=== PATIENT | female | born 1970 | race Caucasian/White ===

== ENCOUNTER 2018-07-25 05:25 | Day surgery (SDC) | payer OTHER ==
[2018-07-24 13:34] LABS: EOSINOPHILS 1.5 % (0-7); HEMATOCRIT 27.8 % (36.0-48.0); HEMOGLOBIN 7.9 g/dL (12-16); IMMATURE GRANULOCYTES 0.2 % (0-5); LYMPHOCYTES 22.9 % (15-50); MCH 20.5 pg (26.0-34.0); MCHC 28.4 g/dL (31.0-37.0); MCV 72.2 fL (80.0-100.0); MEAN PLATELET VOLUME 9.3 fL (7.4-10.4); MONOCYTES 6.9 % (2-11); NEUTROPHILS 67.5 % (40-80); PLATELET COUNT 479 10x3/uL (130-400); RBC 3.85 10x6/uL (4.00-5.40); WBC 8.1 10x3/uL (4.8-10.8)
[2018-07-24 13:38] LABS: CALC OSMOLALITY 284 mosm/kg (275-300); CALCIUM 8.3 mg/dL (8.5-10.1); CARBON DIOXIDE 27.1 mmol/L (21.0-32.0); CHLORIDE - SERUM 108 mmol/L (98-107); CREATININE - SERUM 0.8 mg/dL (0.6-1.3); GLUCOSE 102 mg/dL (74-106); POTASSIUM - SERUM 3.8 mmol/L (3.5-5.1); SODIUM 142 mmol/L (136-145); UREA NITROGEN 18 mg/dL (7-18); eGFR NON AFRICAN AMERICAN 82 mL/min (90-120)
[2018-07-25] VITALS (9 sets, daily range): BP systolic 100–133; BP diastolic 52–67; BMI 34.6
[~2018-07-25 05:25] MED LIST: FERRALET 90 TA1 EACH PO; THEREMS-M1 TAB PO
[2018-07-25 06:02] LABS: HCG URINE NEGATIVE (NEGATIVE)
--- NOTE | 2018-07-25 11:40 | NUR ---
RECEIVED PT FROM VIA STRETCHER TO ROOM 1257. PT TRANSFERS ONTO BED PER SELF AND 2 ASSISTS. PT DROUSY, BUT AWAKE. AAO X 3. VSS. HRRR WITHOUT AUDIBLE MURMUR. BBS CLEAR. BS HYPOACTIVE. 3 LAP INCISION NOTED WITHOUT REDNESS, SWELLING OR DRAINAGE NOTED. NO VAGINAL DISCHARGE NOTED ON PERIPAD. NEG HOMANS' SIGN. PPP. PIV SITE CLEAR TO LEFT HAND-20 GAUGE CATHELON NOTED. LR INFUSING AT 125 ML/HR. CRAIG TO GRAVITY DRAINING CLEAR, YELLOW URINE. PT ORIENTED TO ROOM, BED, AND CALL LIGHT. SR UP X2. CALL LIGHT IN REACH.
--- NOTE | 2018-07-25 12:37 | NUR ---
PT LYING SUPINE IN BED. WAKES UPON ENTERING ROOM. STATES PAIN OF "3" ON 0-10 PAIN SCALE. TORADOL 15 MG GIVEN SIVP OVER 2 MINUTES. PT INSTRUCTED ON MED. VERBALIZES UNDERSTANDING.
--- NOTE | 2018-07-25 13:00 | NUR ---
PT LYING SUPINE IN BED. WAKES UPON ENTERING ROOM. STATES PAIN NOW "1-2" ON 0-10 PAIN SCALE. STATES TOLERATING ICE CHIPS WITH NO NAUSEA.
--- NOTE | 2018-07-25 13:52 | NUR ---
ORDERS CLARIFIED WITH DR BARRY.
--- NOTE | 2018-07-25 14:11 | NUR ---
PT LYING SUPINE IN BED. WAKES UPON ENTERING ROOM. VSS. PT REQUESTING CHICKEN NOODLE SOUP, CRACKERS AND SPRITE BEFORE TAKING PO MEDS.
--- NOTE | 2018-07-25 14:36 | NUR ---
PT SITTING UP IN BED. CONSUMING CHICKEN NOODLE SOUP, CRACKERS. STATES TOLERATING WELL.
--- NOTE | 2018-07-25 15:32 | NUR ---
PT C/O INCISIONAL/ABDOMINAL CRAMPING OF "4" ON 0-10 PAIN SCALE. DILAUDID 1 MG GIVEN SIVP OVER 2 MINUTES. PT INSTRUCTED ON MED. VERBALIZES UNDERSTANDING. ICE PACK CHANGED. GOWN CHANGED.
--- NOTE | 2018-07-25 16:15 | NUR ---
PT LYING SUPINE IN BED. EYES CLOSED. WAKES UPON ENTERING. STATES PAIN MEDICATION RELIEVING PAIN. DENIES C/O OR NEEDS.
--- NOTE | 2018-07-25 17:40 | NUR ---
PT CALLS ON LIGHT. REQUESTS AND RECEIVES LEMON-LOWER ELWHA SODA. PT CONSUMES REGULAR DIET TRAY WITHOUT C/O NAUSEA.
--- NOTE | 2018-07-25 18:13 | NUR ---
PT LYING SUPINE IN BED. AWAKE. STATES PAIN OF "2" ON 0-10 PAIN SCALE. I/O COMPLETED. FRESH ICE PACK PROVIDED. 3 LAP INCISIONS WITHOUT REDNESS, SWELLING OR DRAINAGE NOTED.
--- NOTE | 2018-07-25 18:29 | NUR ---
TORADOL 15 MG GIVEN SIVP OVER 2 MINUTES. PT INSTRUCTED ON MED. VERBALIZES UNDERSTANDING.
--- NOTE | 2018-07-25 19:40 | NUR ---
ASSESSMENT PER FLOW SHEET, VS OBTAINED, IV IN LEFT HAND INTACT WITH NO REDNESS OR EDEMA INFUSING LR AT 125 ML/HR, SALINE LOCK IN INNER LEFT WRIST INTACT WITH NO REDNESS OR EDEMA, 1 UMB AND 2 LOWER LAP INC WITH DERMABOND CDI WITH NO DRAINAGE NOTED, FRESH ICE PACK TO ABD, CRAIG CATH INTACT DRAINING DARK YELLOW URINE, EMPTIED 75 MLS FROM CRAIG CHAMBER TO CRAIG BAG, PT DENIES FLATUS, SCD'S ON AND WORKING PROPERLY, REQUESTED AND SERVED LEMON UTE SODA, DENIES FURTHER NEEDS, FAMILY AT BEDSIDE
--- NOTE | 2018-07-25 20:34 | NUR ---
PT AWAKE, VISITING WITH FAMILY, USING I.S. INST, ADM TYLENOL AND NEURONTIN PER MD ORDERS, SEE EMAR, PT INQUIRES ABOUT GETTING UP TO AMB, INFORMED PT THAT I DID NOT SEE AN ORDER FOR THAT, BUT I WILL CHECK WITH DAY SHIFT NURSE, PT VERBLAIZES UNDERSTANDING, S/O AT BEDSIDE
--- NOTE | 2018-07-25 20:38 | NUR ---
SPOKE TO ROSA SANTILLAN RN AND SHE REPORTS THAT DR BARRY DID SAY PT COULD AMB IF SHE WANTED TO
--- NOTE | 2018-07-25 20:45 | NUR ---
PT INFORMED THAT SHE CAN GET UP AND AMB, SCD'S DISCONNECTED, PT TO SIDE OF BED, EXTRA GOWN PLACED FOR ROBE, PT UP TO SIDE OF BED, PT AMB OUT TO [place], GAIT STEADY, S/O AT SIDE
--- NOTE | 2018-07-25 21:00 | NUR ---
PT BACK IN BED, SCD'S CONNECTED AND WORKING PROPERLY, PT DENIES NEEDS AT THIS TIME, S/O AT BEDSIDE
--- NOTE | 2018-07-25 21:32 | NUR ---
PT RESTING, S/O SITTING IN RECLINER BESIDE PT, THEY ARE HOLDING HANDS, PT DENIES NEEDS OR PAIN AT THIS TIME
[2018-07-26 00:30] VITALS: BP 104/51
--- NOTE | 2018-07-26 00:30 | NUR ---
PT RESTING WITH EYES CLOSED, AROUSES TO SOFT VERBAL STIMULATION, VS OBTAINED, EMPTIED 350 MLS OF DARK YELLOW URINE FROM CRAIG CHAMBER TO CRAIG BAG, ADM TORADOL SIVP PER MD ORDERS, SEE EMAR, PT DENIES FURTHER NEEDS
--- NOTE | 2018-07-26 02:10 | NUR ---
NEW BAG OF LACTATED RINGERS UP AT THIS TIME. PT RESTING COMFORTABLY AT THIS TIME. GABRIEL HUNTER
--- NOTE | 2018-07-26 02:41 | NUR ---
PT RESTING WITH EYES CLOSED, AROUSES TO SOFT VERBAL STIMULATION, ADM TYLENOL PO PER MD ORDERS, SEE EMAR, FRESH H20 SERVED, PT DENIES FURTHER NEEDS, SCD'S CONTINUE ON AND WORKING PROPERLY
[2018-07-26 05:32] VITALS: BP 107/55
--- NOTE | 2018-07-26 05:32 | NUR ---
PT RESTING WITH EYES CLOSED, AROUSES TO SOFT VERBAL STIMULATION, VS OBTAINED, I&O'S COLLECTED, PT RATES PAIN/CRMAPING 03/29, DENIES NEED FOR PAIN MED, SCD'S ON AND CONTINUE WORKING PROPERLY, DENIES NEEDS, S/O AT BEDSIDE
--- NOTE | 2018-07-26 06:39 | NUR ---
PT AWAKE, VISITING WITH S/O, ADM TORADOL SIVP PER MD ORDERS, SEE EMAR, INFORMED PT THAT SIR ASHFORD RN RECEIVED ORDERS TO REMOVE CRAIG CATH AND SALINE LOCK IV, INFORMED PT THAT I WILL BE BACK IN ABOUT 10-15 MINUTES TO REMOVE CRAIG AND SALINE LOCK IV BECAUSE I WANTED TO MAKE SURE THE TORADOL WAS COMPLETELY INFUSED, PT VERBALIZES UNDERSTANDING, REQUESTED AND SERVED APPLE JUICE, DENIES FURTHER NEEDS
--- NOTE | 2018-07-26 07:00 | NUR ---
SHIFT REPORT TO SABRINA PAYTON RN
[2018-07-26 08:30] VITALS: BP 121/57
--- NOTE | 2018-07-26 08:30 | NUR ---
THIS RN TO ROOM FOR SHIFT ASSESSMENT. ASSESSMENT COMPLETE, VSS, SEE FLOWSHEET FOR DOC. PT RATES PAIN 04/29. 3 LAP INCISIONS C/D WITH DERMABOND INTACT. LEFT HAND PIV INFUSING ORDERED, D/C'D PER ORDER TO NORMALIZE PT. SALINE LOCK TO INNER LEFT WRIST LEFT IN PLACE. CRAIG CATH D/C'D. NO VAGINAL BLEEDING NOTED. PT INSTRUCTED ON WHAT S/S TO REPORT, UNDERSTANDING VERBALIZED. SCD'S LEFT ON PER PT REQUEST. PT INSTRUCTED TO NOT GET OOB WITH SCD'S ON, CALL FOR ASSIST TO BR. SPOUSE AT BEDSIDE STATES HE WILL STAY WITH PT AND CAN REMOVE SCD'S AND WALK HER TO BR WHEN READY. PT INSTRUCTED TO CALL IF DIZZY. PT INSTRUCTED TO VOID IN URINE HAT TO MEASURE. UNDERSTANDING VERBALIZED. PERIPADS PROVIDED PER REQUEST. PT REPORTS PASSING GAS, DENIES NAUSEA. WILL ADMIN SCHEDULED MEDS.
--- NOTE | 2018-07-26 08:46 | NUR ---
PT ADMIN SCHEDULED NEURONTIN AND TYLENOL, SEE EMAR FOR DOC. FRESH ICE WATER GIVEN. PT DENIES NEEDS, STATES SHE IS READY TO GO HOME SOON. SRUx2, CL IN REACH. WILL CONT TO MONITOR. SIG OTHER AT BEDSIDE.
--- NOTE | 2018-07-26 09:40 | NUR ---
DR BARRY TO ROOM FOR ROUNDING, DISCUSSING D/C INSTRUCTIONS.
--- NOTE | 2018-07-26 10:29 | NUR ---
LEFT WRIST PIV REMOVED PER D/C ORDER, PRESSURE HELD AND BANDAID APPLIED.
--- NOTE | 2018-07-26 10:30 | NUR ---
PT GIVEN D/C INSTRUCTIONS, VERBALIZES UNDERSTANDING AND DENIES QUESTIONS. PT SIGNS CHART COPIES. DISCUSSING PAIN CONTROL WITH PT. PT STATES DR BARRY TOLD HER SHE WOULD HAVE PAIN MED RX FOR PAIN CONTROL FOR DISCHARGE. DR BARRY PHONED, STATES HE HAS PRESCRIPTIONS AND WILL SEND THEM FROM CLINIC. PT UPDTATED.
--- NOTE | 2018-07-26 10:58 | NUR ---
PT PROVIDED WITH WRITTEN PRESCRIPTIONS FROM DR BARRY ALONG WITH MED COUNSELOR SHEETS AND INSTRUCTIONS GIVEN. PT VERBALIZES UNDERSTANDING AND SIGNS SHE RECEIVED PRESCRIPTIONS.
--- NOTE | 2018-07-26 11:04 | NUR ---
PT TAKEN OFF UNIT VIA W/C TO PRIVATE VEHICLE FOR D/C TO HOME. SIG OTHER TO DRIVE HER.
--- NOTE | 2018-08-17 08:15 | OP ---
PATIENT NAME: RAKESH KABA MEDICAL RECORD: [id number] :74 LOCATION:D.OPS ADMISSION DATE: SURGEON: FRANKLIN BARRY MD DATE OF OPERATION: 07/25/2018 DATE OF SERVICE: 07/25/2018 PREOPERATIVE DIAGNOSES: 1. Menorrhagia. 2. Anemia. POSTOPERATIVE DIAGNOSES: 1. Menorrhagia. 2. Anemia. PROCEDURE: Total laparoscopic hysterectomy with bilateral salpingectomy. PRIMARY SURGEON: Franklin Barry MD VEGETABLE GRADER: Ronnie Doe ANESTHESIOLOGIST: Christopher Frederick MD ANESTHESIA: General anesthetic with endotracheal intubation. FINDINGS: Uterus is slightly enlarged with irregular contour. The tubes are unremarkable. Ovaries are unremarkable. Her vaginal vault is unremarkable. SPECIMENS REMOVED: Uterus with cervix and bilateral tubes. ESTIMATED BLOOD LOSS: 200 cc. FLUIDS: 1. 1900 cc of lactated Ringer's. 2. Two units of packed red blood cells. COMPLICATIONS: None. DRAIN: Chang to gravity. INDICATIONS: The patient is a 48-year-old female with a history of menorrhagia to anemia. The patient is severely anemic coming into this procedure and received 2 units of packed red blood cells prior to and during this procedure. The patient has been offered medical management and desires definitive therapy. DESCRIPTION OF PROCEDURE: After informed consent was assured, the patient was taken to the operating room where anesthetic was obtained and she was placed in [facility]. The patient was now prepped and draped in the usual sterile fashion. Uterine manipulator has been placed. Incision was made at the umbilicus to accommodate a 5-mm trocar, which was inserted without difficulty and pneumoperitoneum developed. Accessory ports are now placed in the right and left lower quadrants. With the patient in steep Trendelenburg position, bowel swept free of the pelvis and the left tube was elevated. Using a Thunderbeat coagulation cutter, the connective tissues of the tube to the left adnexa are compressed, coagulated, and . This dissection was carried down over OPERATIVE REPORT [id number] RAKESH KABA the uteroovarian and round ligaments. Anterior leaf of the broad ligament was opened and bladder flap was developed to the midline. Posterior leaf was now opened. The vessels compressed, coagulated, and on the left side. Attention was directed to the right where the tube was removed in similar fashion. Dissection again was carried down over the right uteroovarian and round ligaments. Anterior leaf of the broad ligament was opened and the bladder flap now fully developed to the level of the V cup. Posteriorly, the tissues dissected free of the vascular bundle and the vessels of the right side of the uterus are compressed, coagulated, and . Dissection of the cervix from the vagina begins at the 6 o'clock position and was carried out to the 12 o'clock position and then from the 6 to the 12 o'clock position on the left side. Uterus was now pulled in the vagina. The pelvis irrigated and irrigant removed. The tubes and uterus with attached cervix was passed to the welder gas tungsten arc to be sent to pathology. Cuff was now closed with interrupted Vicryl stitch. Prior to a close, a stitch was passed through the posterior cuff incorporating both right and left uterosacral ligaments and back out, in this way securing the apex of the vagina the ligament support. Pneumoperitoneum was now reestablished and visualization of the pelvis reveals adequate hemostasis. The pelvis was irrigated, irrigant removed and all trocars removed. The skin was closed with a subcuticular stitch and sterile dressing was applied. Sponge, lap, needle counts were correct times 2. TRANSINT:[id number] Voice Confirmation ID: [id number] DOCUMENT ID: [id number] FRANKLIN BARRY MD at 0815 CC: [id number] DICTATION DATE: 08/16/18 1328 PIT LABORER: 08/16/18 1546 [facility] 07/26/18 [id number] [place] [address]
== END 2018-07-26 11:04 | disposition home or self-care (01) ==
LOC: D.LD 05:25 → D.OPS 05:25 → D.PAN 07:30 → D.LD 11:38 → D.OPS 07-26 11:04
PROVIDERS: ATTEND Obstetrics & Gynecology
DX: N92.0 Excessive and frequent menstruation with regular cycle (principal); D25.9 Leiomyoma of uterus, unspecified; D64.9 Anemia, unspecified; N85.2 Hypertrophy of uterus; Z01.812 Encounter for preprocedural laboratory examination